=== PATIENT | male | born 1980 | race Caucasian/White ===

== ENCOUNTER 2016-10-11 17:46 | Emergency (ER) | payer BC, MEDICAID ==
[~2016-10-11] VITALS: Ht 167.6 cm; Wt 70.3 kg
[~2016-10-11 17:46] MED LIST: DULO30CA2 PO
[2016-10-11 17:56] VITALS: BP 136/87
== END 2016-10-11 18:16 | disposition home or self-care (01) ==
LOC: ER 17:58
DX: L02.413 Cutaneous abscess of right upper limb (principal); F32.9 Major depressive disorder, single episode, unspecified; F41.9 Anxiety disorder, unspecified; F17.200 Nicotine dependence, unspecified, uncomplicated; Z88.8 Allergy status to other drugs, medicaments and biological substances
CPT/HCPCS: 99283; A4606; Z7610

== ENCOUNTER 2017-07-07 18:09 | Emergency (ER) | payer BC, OTHER ==
[~2017-07-07] VITALS: Ht 165.1 cm; Wt 65.8 kg
[2017-07-07 18:17] VITALS: BP 139/89
[2017-07-07] MEDS ORDERED: HYDROCODONE/APAP 5/325MG 1 EACH TABLET ONE (20:07)
[2017-07-07] MEDS ORDERED: HYDROCODONE/APAP 5/325MG 1 EACH TABLET PO ONE (20:30)
== END 2017-07-07 20:12 | disposition home or self-care (01) ==
LOC: ER 18:11
DX: S43.402A Unspecified sprain of left shoulder joint, initial encounter (principal); S16.1XXA Strain of muscle, fascia and tendon at neck level, initial encounter; F41.9 Anxiety disorder, unspecified; F17.200 Nicotine dependence, unspecified, uncomplicated; F10.10 Alcohol abuse, uncomplicated; F32.9 Major depressive disorder, single episode, unspecified; Z88.8 Allergy status to other drugs, medicaments and biological substances; V43.52XA Car driver injured in collision with other type car in traffic accident, initial encounter; Y93.89 Activity, other specified; Y92.410 Unspecified street and highway as the place of occurrence of the external cause; Y99.8 Other external cause status
CPT/HCPCS: 72050-TC; 73030-TC; A4606; Z7610

== ENCOUNTER 2022-12-12 18:35 | Emergency (ER) | payer BC ==
[~2022-12-12] VITALS: Ht 162.6 cm; Wt 59.0 kg
[2022-12-12 18:45] VITALS: BP 109/91; TEMP 98
[2022-12-12] MEDS ORDERED: TDAP [DIPH/PERTUSSIS/TET] 0.5 ML VIAL IM ONE ×2 (19:00→19:01)
[2022-12-12 19:25] VITALS: O2SAT 100
== END 2022-12-12 19:26 | disposition home or self-care (01) ==
LOC: ER 18:45
DX: S91.331A Puncture wound without foreign body, right foot, initial encounter (principal); F32.A Depression, unspecified; F41.9 Anxiety disorder, unspecified; F17.200 Nicotine dependence, unspecified, uncomplicated; Z88.8 Allergy status to other drugs, medicaments and biological substances; W45.0XXA Nail entering through skin, initial encounter; Y93.89 Activity, other specified; Y92.89 Other specified places as the place of occurrence of the external cause; Y99.8 Other external cause status
CPT/HCPCS: 99283; 90471; 90715; A6403

== ENCOUNTER 2024-05-04 13:30 | Emergency (ER) | payer BC ==
[~2024-05-04] VITALS: Ht 167.6 cm; Wt 61.2 kg
[2024-05-04 13:48] VITALS: BP 121/73; TEMP 98.3
[2024-05-04] MEDS ORDERED: LIDOCAINE 5% (PATCH) 1 EA PATCH TP ONE (15:33)
[2024-05-04] MEDS ORDERED: KETOROLAC TROMETHAMINE 15 MG/ML VIAL ONE (15:34)
[2024-05-04] MEDS: KETOROLAC TROMETHAMINE 15 MG/ML VIAL IM ONE (15:38)
[2024-05-04] MEDS: LIDOCAINE 5% (PATCH) 1 EA PATCH TP SCH (15:40)
[2024-05-04] MEDS ORDERED: CYCL5TAB PO (15:40)
[2024-05-04] MEDS ORDERED: LIDO30AD10 TP (15:40)
[2024-05-04] MEDS ORDERED: IBUP-1953 PO (15:40)
[2024-05-04 15:57] VITALS: O2SAT 97
== END 2024-05-04 15:59 | disposition home or self-care (01) ==
LOC: ER 13:32
DX: M25.511 Pain in right shoulder (principal); M25.521 Pain in right elbow; F17.200 Nicotine dependence, unspecified, uncomplicated; Z79.899 Other long term (current) drug therapy; W01.0XXA Fall on same level from slipping, tripping and stumbling without subsequent striking against object, initial encounter; Y93.89 Activity, other specified; Y92.89 Other specified places as the place of occurrence of the external cause; Y99.8 Other external cause status
CPT/HCPCS: 99284; 96372; 72100; 73080; 73564; 73030; J1885

== ENCOUNTER 2024-05-06 11:02 | Emergency (ER) | payer BC ==
[~2024-05-06] VITALS: Ht 167.6 cm; Wt 61.2 kg
[~2024-05-06 11:02] MED LIST changes: +CYCL5TAB PO; +IBUP-1953 PO; +LIDO30AD10 TP
[2024-05-06] MEDS: IV NS 0.9% 1,000 ML BAG IV ONE (11:47)
[2024-05-06] MEDS: CEFEPIME 1 GM in IV D5W 50 ML IV ONE (11:48)
[2024-05-06 12:04] LABS: BASOPHILS # (AUTO) 0.1 K/uL (0.0-0.2); BASOPHILS % (AUTO) 0.8 % (0.0-2.0); EOSINOPHILS # (AUTO) 0.2 K/uL (0.0-0.7); EOSINOPHILS % (AUTO) 1.8 % (0.0-6.0); HEMATOCRIT 34 % (39-51); HEMOGLOBIN 11.5 g/dL (13.5-17.5); LYMPHOCYTES # (AUTO) 2.4 K/uL (0.8-4.8); LYMPHOCYTES % (AUTO) 27.2 % (20.0-44.0); MEAN CORPUSCULAR HEMOGLOBIN 27 PG (26.0-33.0); MEAN CORPUSCULAR HGB CONC 34 g/dl (31.0-36.0); MEAN CORPUSCULAR VOLUME 81 fL (80-96); MONOCYTES % (AUTO) 11.4 % (2.0-12.0); NEUTROPHILS # (AUTO) 5.2 K/uL (1.8-8.9); NEUTROPHILS % (AUTO) 58.8 % (43.0-81.0); PLATELET COUNT (AUTO) 298 K/uL (150-450); RED BLOOD CELL COUNT(AUTO) 4.22 MIL/uL (4.5-6.0); RED CELL DISTRIBUTION WIDTH 14.1 % (11.5-15.0); WHITE BLOOD COUNT (AUTO) 8.8 K/uL (4.3-11.0)
[2024-05-06 12:09] LABS: CALCIUM, SERUM 8.8 mg/dL (8.5-10.1); CARBON DIOXIDE 29 mmol/L (21-32); CHLORIDE 101 mmol/L (98-107); CREATININE 1.1 mg/dL (0.6-1.3); GLUCOSE 126 mg/dL (74-106); POTASSIUM 3.6 mmol/L (3.5-5.1); SODIUM SERUM 140 mmol/L (136-145); UREA NITROGEN, BLOOD 30 mg/dL (7-18)
[2024-05-06 12:11] LABS: INR 1.06 (0.91-1.10); PROTHROMBIN TIME 11.2 SECS (9.2-11.1)
[2024-05-06 12:14] LABS: ALANINE AMINOTRANSFERASE 23 U/L (12-78); ALBUMIN 3.5 g/dL (3.4-5.0); ALKALINE PHOSPHATASE 83 U/L (46-116); ASPARTATE AMINOTRANSFERASE 24 U/L (15-37); BILIRUBIN,DIRECT 0.1 mg/dL (0.0-0.2); BILIRUBIN,TOTAL 0.6 mg/dL (0.2-1.0); TOTAL PROTEIN, SERUM 7.6 g/dL (6.4-8.2)
[2024-05-06] MEDS: VANCOMYCIN 1 GM in IV D5W 250 ML IV ONE (12:14)
[2024-05-06 12:15] LABS: LACTIC ACID 2.5 mmol/L (0.4-2.0)
[2024-05-06] MEDS ORDERED: METH10OR11 PO (13:32)
[2024-05-06] MEDS ORDERED: ONDANSETRON HCL/PF 4 MG/2 ML VIAL ONE (21:12)
[2024-05-06] MEDS ORDERED: MORPHINE SULFATE INJ 4 MG/ML DISP.SYRIN ONE (21:13)
[2024-05-06] MEDS: MORPHINE SULFATE INJ 2 MG/ML DISP.SYRIN IV ONE (21:24)
[2024-05-06] MEDS: ONDANSETRON HCL/PF 4 MG/2 ML VIAL IV ONE (21:24)
[2024-05-06 21:30] VITALS: BP 119/84; TEMP 98.2; O2SAT 98
== END 2024-05-06 22:35 | disposition short-term general hospital (02) ==
LOC: ER 11:09
DX: L03.116 Cellulitis of left lower limb (principal); R53.81 Other malaise; F17.200 Nicotine dependence, unspecified, uncomplicated; Z79.899 Other long term (current) drug therapy
CPT/HCPCS: 99285; 96365; 93971; 96375; 71045; 96368; 93005; 84145; 85025; 80048; 87040 ×2; 83605 ×2; 80076; 36415; 85730; J2270; J3370; J2405; J7060; J7030; A4223; J0692